=== PATIENT | female | born 1985 | race Hispanic/Latino ===

== ENCOUNTER 2024-09-27 10:07 | Outpatient (CLI) | payer BC, SELFPAY ==
--- NOTE | ~2024-09-27 | XR_ITS ---
XR elbow RT 2V 09/27/2024 10:16 Indication: Right elbow pain Procedure: 2 views right elbow Comparison: No prior studies for comparison. Findings: There is anatomic alignment. No fracture or traumatic malalignment. No significant joint ef fusion. No foreign bodies. Impression: 1: No significant bone or joint abnormality. Reviewed, dictated and finalized at location B. RHOUSE ATTENDANT Impression: 1: No significant bone or joint abnormality.
== END 2024-09-27 10:08 | disposition home or self-care (01) ==
LOC: MICIMG 10:09
PROVIDERS: PCP Internal Medicine; Visit Provider Internal Medicine
DX: M25.521 Pain in right elbow (principal)
CPT/HCPCS: 73070

== ENCOUNTER 2025-03-05 07:27 | Outpatient (CLI) | payer BC, SELFPAY ==
--- OUTSIDE RECORDS SUMMARY | 2025-03-05 07:31 | XMS_ITS | Clinical Summary ---
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 Gender Identity Not on file Sexual Orientation Not on file Plan of Treatment Health Maintenance Due Date Last Done Comments Cervical Cancer Screening Pap Smear (Age 30 to 64) Every 3 Years 1983 Annual Physical 1986 Hepatitis C 2001 Cervical Cancer Screening Pap with HPV Testing (Age 30 to 64) Every 5 Years 2013 Cervical Cancer Screening with HPV 2013 Hepatitis B Vaccines (2 of 3 - 19+ 3-dose series) 10/28/2022 09/30/2022 Mammogram Screening 2023 COVID-19 Vaccine ( season) 2024 08/01/2023, 10/18/2021, 04/01/2021, Additional history exists PHQ-2 (Physician [place]) 10/24/2024 DTaP, Tdap and Td Vaccines (3 - Td or Tdap) 09/30/2032 09/30/2022, 10/03/2017 HPV Vaccines Aged Out No longer eligi ble based on patient's age to complete this topic Meningococcal B Vaccine Aged Out No l onger eligible based on patient's age to complete this topic Meningococcal Vaccine Aged Out No zoë raciel eligible based on patient's age to complete this topic Pneumococcal Vaccine: Pediatrics (0 to 5 Years) and At-Risk Patients (6 to 49 Years) Aged Out No longer eligible based on patient's age to complete this topic RSV Immunizations Under 20 Months Aged Out No longer eligible based on patient's age to complete this topic
--- OUTSIDE RECORDS SUMMARY | 2025-03-05 07:31 | XMS_ITS | Referral Summary ---
Author Organization [facility] [address] [place] [id number] Care Team Providers Care Upper Cutter Name Role Phone Bertrand Roach MD Primary Care Provider + [phone] Allergies No known active allergies Medications losartan (COZAAR) 25 mg tablet Take 1 tablet (25 mg total) by mouth daily Active celecoxib (CeleBREX) 200 mg capsule Take 1 capsule (200 mg total) by mouth 2 (two) times a day Active RABEprazole DR (ACIPHEX) 20 mg EC tablet Take 1 tablet (20 mg total) by mouth daily Active sertraline (ZOLOFT) 100 mg tablet Take 1 tablet (100 mg total) by mouth daily Active blood-glucose sensor (Dexcom G7 Sensor) device Use for BG monitoring 3 each 4 Active Active Problems Problem Noted Date Diagnosed Date Hypoglycemia after GI (gastrointestinal) surgery 08/03/2024 Assessment & Plan (08/03/2024 3:42 PM CDT): Diet as cornerstone of treatment was discussed Importance of avoiding going more than 3- 4 hours without some caloric and low carb intake was explained Also the patient is advised on avoiding rapid absorption carbohydrates. Also the need to consume complex carbs , including protein and no saturated fats was also discussed Start CGM with the Dexcom mostly to see glucose trends May consider the use of acarbose and or metformin Hyperprolactinemia 08/03/2024 Assessment & Plan (08/03/2024 3:41 PM CDT): Update prolactin, TSH Recommendations to follow Social History Tobacco Use Types Packs/Day Years Used Date Smoking Tobacco: Never Smokeless Tobacco: Never Tobacco Cessation:Counseling Given: Not Answered AUDIT-C Answer Date Recorded Q1: How often do you have a drink containing alcohol? Never 08/03/2024 Q2: How many drinks containi ng alcohol do you have on a typical day when you are drinking? Patient does not drink Q3: How often do you have si x or more drinks on one occasion? 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 Gender Identity Not on file Sexual Orientation Not on file Last Filed Vital Signs Vital Sign Reading Time Taken Comments Blood Pressure 116/62 08/03/2024 12:02 PM CDT Pulse 83 08/03/2024 12:02 PM CDT Temperature - - Respiratory Rate 18 08/03/2024 12:02 PM CDT Oxygen Saturation - - Inhaled Oxygen Concentration - - Weight 82.6 kg (182 lb 3.2 oz) 08/03/2024 12:02 PM CDT Height 162.6 cm (5' 4 ) 08/03/2024 12:02 PM CDT Body Mass Index 31.27 08/03/2024 12:02 PM CDT Plan of Treatment Not on file [place] [address] [employer] ACC[employer] CHOICE Care Teams Upper Cutter Relationship Specialty Start Date End Date Bertrand Roach MD PCP - General Internal Medicine 01/16/24
--- OUTSIDE RECORDS SUMMARY | 2025-03-05 07:31 | XMS_ITS | Clinical Summary ---
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 Gender Identity Not on file Sexual Orientation Not on file Obstetrics History Last Filed Vital Signs Vital Sign Reading [...] 08/03/2024 12:02 PM CDT Plan of Treatment Health Maintenance Due Date Last Done Comments Breast Cancer Screening-Mammogram 1983 Cervical Cancer Screening 1983 Hepatitis C Screening 1983 Regular Well Visit/Exam 18-64 2001 Depression Screening 08/03/2025 08/03/2024, 08/03/20 24 DTaP/Tdap/Td Vaccine (3 - Td or Tdap) 09/30/2032 09/30/2022, 10/03/2017 Varicella Vaccines Completed 02/08/2023, 11/19/2022 Covid-19 Vaccine Completed 07/11/2024, 06/2023, 10/18/2021, Additional history exists Hepatitis B Screening Completed 07/11/2024, 022 Influenza Vaccine Completed 07/11/2024, , 09/06/2022, Additional history exists HPV Vaccines Aged Out No longer eligi ble based on patient's age to complete this topic Pneumococcal vaccine <65 Aged Out No longer eligible based on patient's age to complete [place] [id number] [facility] ACCESS CHOICE Care Teams Social Media Editor Relationship Specialty Start Date End Date Bertrand Roach MD PCP - General Internal Medicine 01/16/24
--- OUTSIDE RECORDS SUMMARY | 2025-03-05 07:32 | XMS_ITS | Data Portability ---
Author Organization [place] - [facility], DISP_HR Vascular Address [address] [place] [address] Assessment No assessment recorded. Plan of Treatment Reminders Order Date Submit Date Provider Last Modified By Organization Details Last Modified Time Details Appointments None record ed. Lab None record ed. Referral None record ed. Procedures None record ed. Surgeries None record ed. Imaging None record ed. Medication Orders None record ed. Patient TargetsNo targets recorded. Patient InstructionsNo instructions recorded. Reason for Referral None Reported. Results Created Date Observation Date Name Description Value Unit Range Abnormal Flag Note LastModifiedBy Organization Detail LastModifiedTime 08/18/2008/18/2021 GLUCO SE (POIN T OF CARE) glucose (point of care) 124 mg/dL 74-106 high Not Available [facility] (Lab) [address], [place], [address], 08/18/2021 21:17:59 08/18/20 21 08/18/2021 GLUCO SE (POIN T OF CARE) glucose (point of care) 142 mg/dL 74-106 high Not Available [facility] (Lab) [address], [place], [address], 08/18/2021 18:23:48 08/18/20 21 08/18/2021 GLUCO SE (POIN T OF CARE) glucose (point of care) 102 mg/dL 74-106 Not Available [facility] (Lab) [address], [place], [address], 08/18/2021 13:28:55 08/18/20 21 08/18/2021 GLUCO SE (POIN T OF CARE) glucose (point of care) 136 mg/dL 74-106 high Not Available [facility] (Lab) [address], [place], [address], 08/18/2021 11:25:35 08/18/20 21 08/18/2021 TYPE AND SCREE N patient ABO group and Rh O positi ve Not Available [facility] (Lab) [address], [place], [address], 08/18/2021 08:45:18 08/18/20 21 08/18/2021 TYPE AND SCREE N patient antibody screen negati ve Not Available [facility] (Lab) [address], [place], [address], 08/18/2021 08:45:18 08/18/20 21 08/18/2021 TYPE AND SCREE N bb armband id: [id number] Not Available [facility] (Lab) [address], [place], [address], 08/18/2021 08:45:18 08/19/20 21 08/19/2021 GLUCO SE (POIN T OF CARE) glucose (point of care) 98 mg/dL 74-106 Not Available [facility] (Lab) [address], [place], [address], 08/19/2021 17:46:01 08/19/20 21 08/19/2021 GLUCO SE (POIN T OF CARE) glucose (point of care) 109 mg/dL 74-106 high Not Available [facility] (Lab) [address], [place], [address], 08/19/2021 14:12:17 08/19/20 21 08/19/2021 GLUCO SE (POIN T OF CARE) glucose (point of care) 114 mg/dL 74-106 high Not Available [facility] (Lab) [address], [place], [address], 08/19/2021 10:18:57 08/19/20 21 08/19/2021 GLUCO SE (POIN T OF CARE) glucose (point of care) 116 mg/dL 74-106 high Not Available [facility] (Lab) [address], [place], [address], 08/19/2021 05:43:24 08/19/20 21 08/19/2021 GLUCO SE (POIN T OF CARE) glucose (point of care) 115 mg/dL 74-106 high Not Available [facility] (Lab) [address], [place], [address], 08/19/2021 01:04:52 09/08/20 22 2022 MEASL ES/RU BEOLA ANTIB ODIES ,IGG rubeola Ab, IgG <13.5 AU/mL immune >16.4 low Negat bette <13.5 Equiv ocal 13.5 - 16.4 Posit bette >16.4 Prese nce of antib odies to Rubeo la is presu mptiv e evide nce of immun ity excep t when acute infec tion is suspe cted. Perfo rmed at: [facility] [address] [facility], [place] [id number] [facility] Lab Direc tor: Jesus corcoran PhD, Phone : [phone] Not Available [facility] (Lab) [address] [place], [address], 2022 08:14:20 09/08/20 22 09/11/2022 QUANT IFERO N-TB GOLD PLUS quantiferon- TB gold plus negati ve negati ve No respo nse to M tuber culos is antig ens detec kenia. Infec tion with M tuber culos is is unlik janet, but high risk indiv idual s shoul d be consi dered for addit ional testi ng (ATS/ IDSA/ CDC Clini loc Pract ice Guide lines , 2017) . The refer ence range is an Antig en minus Nil resul t of <0.35 IU/mL . Chemi lumin escen ce immun oassa y metho dolog y Perfo rmed at: CB - [facility] n [address] [facility], [place] [id number] Lab Direc tor: Jesus corcoran PhD, Phone : [phone] Not Available [facility] (Lab) [address] [place], [address], 09/11/2022 09:13:35 09/08/20 22 09/11/2022 QUANT IFERO N-TB GOLD PLUS quantiferon incubation commen t Incub ation perfo rmed. Not Available [facility] (Lab) [address] [place], [address], 09/11/2022 09:13:35 09/08/20 22 09/11/2022 QUANT IFERO N-TB GOLD PLUS quantiferon criteria commen t . Quant iFERO N-TB Gold Plus is a quali tativ e indir ect test for M tuber culos is infec tion (incl uding disea se) and is inten ded for use in conju nctio n with risk asses sment , radio graph y, and other medic al and diagn ostic evalu ation s. The Quant iFERO N-TB Gold Plus resul t is deter mined by subtr actin g the Nil value from eithe r TB antig en (Ag) value . The Mitog en tube serve s as a contr ol for the test. Not Available [facility] (Lab) [address] [place], [address], 09/11/2022 09:13:35 09/08/20 22 09/11/2022 QUANT IFERO N-TB GOLD PLUS quantiferon TB1 Ag value 0.05 IU/mL Not Available [facility] (Lab) [address] [place], [address], 09/11/2022 09:13:35 09/08/20 22 09/11/2022 QUANT IFERO N-TB GOLD PLUS quantiferon TB2 Ag value 0.06 IU/mL Not Available [facility] (Lab) [address] [place], [address], 09/11/2022 09:13:35 09/08/20 22 09/11/2022 QUANT IFERO N-TB GOLD PLUS quantiferon nil value 0.04 IU/mL Not Available [facility] (Lab) [address] [place], [address], 09/11/2022 09:13:35 09/08/20 22 09/11/2022 QUANT IFERO N-TB GOLD PLUS quantiferon mitogen value >10.00 IU/mL [facility] [address] [facility], [place], [place] [id number] Lab Direc tor: Jesus corcoran PhD, Phone : [phone] Not Available [facility] (Lab) [address] [place], [address], 09/11/2022 09:13:35 09/08/20 22 2022 RUBEL LA IGG (IMMU NE STATU S) rub 8.06 IU/mL 0.0-9. 99 RUBEL LA IGG INTER PRETA TION: 0.0 - 9.99 Negat bette 10.00 - 14.99 Low Posit bette 15.00 or great er Posit bette Antib jeaneth level s > or = 10.0 WHO IU/mL are consi dered to be an indic ator of posit bette immun e statu s. Not Available [facility] (Lab) [address] [place], [address], 2022 20:43:26 09/08/20 22 2022 HEP BE AG hep BE Ag negati ve negati ve [facility]: [facility] [address] [facility], [place], [place] [id number] Lab Direc tor: Jesus corcoran PhD, Phone : [phone] Not Available [facility] (Lab) [address] [place], [address], 2022 12:11:28 09/08/20 22 2022 MUMPS ANTIB ODIES , IGG mumps abs, IgG 100.0 AU/mL immune >10.9 Negat bette <9.0 Equiv ocal 9.0 - 10.9 Posit bette >10.9 A posit bette resul t gener ally indic ates past expos ure to Mumps virus or previ ous vacci natio n. Perfo rmed at: - [address], [place] [address] Lab Direc tor: Jesus corcoran PhD, Phone : [phone] Not Available [facility] (Lab) [address] [place], [address], 2022 08:14:19 09/08/20 22 09/08/2022 URINA LYSIS COMPL ETE, IRIS pH 5.5 pH_un its 5.0-9. 0 Not Available [facility] (Lab) [address] [place], [address], 09/08/2022 19:55:58 09/08/20 22 09/08/2022 URINA LYSIS COMPL ETE, IRIS color yellow Not Available [facility] (Lab) [address] [place], [address], 09/08/2022 19:55:58 09/08/20 22 09/08/2022 URINA LYSIS COMPL ETE, IRIS appear turbid abnormal Not Available [facility] (Lab) [address] [place], [address], 09/08/2022 19:55:58 09/08/20 22 09/08/2022 URINA LYSIS COMPL ETE, IRIS specific gravity 1.021 1.001- 1.030 Not Available [facility] (Lab) [address] [place], [address], 09/08/2022 19:55:58 09/08/20 22 09/08/2022 URINA LYSIS COMPL ETE, IRIS leukocytes negati ve evangelista/u L negati ve- Not Available [facility] (Lab) [address] [place], [address], 09/08/2022 19:55:58 09/08/20 22 09/08/2022 URINA LYSIS COMPL ETE, IRIS nitrite negati ve negati ve- Not Available [facility] (Lab) [address] [place], [address], 09/08/2022 19:55:58 09/08/20 22 09/08/2022 URINA LYSIS COMPL ETE, IRIS protein 20 mg/dL negati ve- abnormal Not Available [facility] (Lab) [address] [place], [address], 09/08/2022 19:55:58 09/08/20 22 09/08/2022 URINA LYSIS COMPL ETE, IRIS glucose normal mg/dL normal - Not Available [facility] (Lab) [address] [place], [address], 09/08/2022 19:55:58 09/08/20 22 09/08/2022 URINA LYSIS COMPL ETE, IRIS ketones 60 mg/dL negati ve- abnormal Not Available [facility] (Lab) [address] [place], [address], 09/08/2022 19:55:58 09/08/20 22 09/08/2022 URINA LYSIS COMPL ETE, IRIS urobilinogen normal mg/dL normal - Not Available [facility] (Lab) [address] [place], [address], 09/08/2022 19:55:58 09/08/20 22 09/08/2022 URINA LYSIS COMPL ETE, IRIS bilirubin negati ve mg/dL negati ve- Not Available [facility] (Lab) [address] [place], [address], 09/08/2022 19:55:58 09/08/20 22 09/08/2022 URINA LYSIS COMPL ETE, IRIS blood negati ve mg/dL negati ve- Not Available [facility] (Lab) [address] [place], [address], 09/08/2022 19:55:58 09/08/20 22 09/08/2022 URINA LYSIS COMPL ETE, IRIS white blood cells 0-8 /i??h pfi?? 0-8 Not Available [facility] (Lab) [address] [place], [address], 09/08/2022 19:55:58 09/08/20 22 09/08/2022 URINA LYSIS COMPL ETE, IRIS red blood cells 0-4 /i??h pfi?? 0-4 Not Available [facility] (Lab) [address] [place], [address], 09/08/2022 19:55:58 09/08/20 22 09/08/2022 URINA LYSIS COMPL ETE, IRIS bacteria occasi onal abnormal Not Available [facility] (Lab) [address] [place], [address], 09/08/2022 19:55:58 09/08/20 22 09/08/2022 URINA LYSIS COMPL ETE, IRIS mucous many /i??l pfi?? abnormal Not Available [facility] (Lab) [address] [place], [address], 09/08/2022 19:55:58 09/08/20 22 09/08/2022 URINA LYSIS COMPL ETE, IRIS squamous epithelial packed field /i??l pfi?? abnormal Not Available [facility] (Lab) [address] [place], [address], 09/08/2022 19:55:58 09/08/20 22 09/08/2022 URINA LYSIS COMPL ETE, IRIS renal epithelial occasi onal /i??l pfi?? abnormal Not Available [facility] (Lab) [address] [place], [address], 09/08/2022 19:55:58 09/08/20 22 09/08/2022 URINA LYSIS COMPL ETE, IRIS hyaline cast occasi onal /i??l pfi?? none seen- abnormal Not Available [facility] (Lab) [address] [place], [address], 09/08/2022 19:55:58 09/08/20 22 09/08/2022 URINA LYSIS COMPL ETE, IRIS calcium oxalate crystal occasi onal /i??h pfi?? none seen- abnormal Not Available [facility] (Lab) [address] [place], [address], 09/08/2022 19:55:58 09/08/20 22 09/08/2022 LIPID PANEL LDL cholesterol, calculated 96 mg/dL 0-130 NIH KASHMIR NSUS REPOR T RECOM MENDA TIONS FOR LDL: ADULT CHILD LOW RISK <130 <110 (OPTI MAL LDL) <100 ----- BORDE RLINE : 130-1 59 ----- HIGH RISK: >160 >130 A TRIGL YCERI DE RESUL T >400 INVAL IDATE S THE CALCU LATIO N FOR LDL FRACT IONAT ION - THE LDL RESUL T WILL NOT BE REPOR KENIA. Not Available [facility] (Lab) [address] [place], [address], 09/08/2022 19:40:10 09/08/20 22 09/08/2022 LIPID PANEL cholesterol 176 mg/dL 140-19 9 NIH KASHMIR NSUS RECOM MENDA TION FOR ESTHER STERO L: ADULT CHILD LOW RISK: <200 <170 BORDE RLINE : <200- 239 ----- HIGH RISK: >240 >200 Not Available [facility] (Lab) [address] [place], [address], 09/08/2022 19:40:10 09/08/20 22 09/08/2022 LIPID PANEL triglyceride s 113 mg/dL 0-150 NIH KASHMIR NSUS REPOR T RECOM MENDA TION FOR TRIGL YCERI EDGAR: ADULT CHILD LOW RISK: <150 ----- BODER LINE: 150-1 99 ----- HIGH RISK: >200 ----- Not Available [facility] (Lab) [address] [place], [address], 09/08/2022 19:40:10 09/08/20 22 09/08/2022 LIPID PANEL HDL cholesterol 57 mg/dL 40- Not Available [facility] (Lab) [address] [place], [address], 09/08/2022 19:40:10 09/23/20 22 09/25/2022 VARIC EDGAR- ZOSTE R V AB, IGG varicella zoster IgG <135 index immune >165 low Negat bette <135 Equiv ocal 135 - 165 Posit bette >165 A posit bette resul t gener ally indic ates expos ure to the patho gen or admin istra tion of speci fic immun oglob ulins , but it is not indic ation of activ e infec tion or stage of disea se. Perfo rmed at: CB - [facility] [address] [place] [address] Lab Direc tor: Jesus corcoran PhD, Phone : [phone] Not Available [facility] (Lab) [address] [place], [address], 09/25/2022 08:13:19 09/23/20 22 09/23/2022 HEP B SURF ANTIG EN W/CON FIRM hepatitis B surface antigen non-re active non-re active All speci mens react bette for Hepat itis B Surfa ce Antig en will refle x to refer ral lab confi rmato ry testi ng. Not Available [facility] (Lab) [address] [place], [address], 09/23/2022 19:48:52 09/23/20 22 09/23/2022 HEP B SURF ANTIG EN W/CON FIRM S/C 0.07 0.00-0 .99 Not Available [facility] (Lab) [address] [place], [address], 09/23/2022 19:48:52 Result Notes None recorded. 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 2021 Not Available [facility] 3 03:15:51 Low back pain 410176082 Completed Not Available [facility] 3 03:15:51 Adnexal tenderness 808253954 Completed Not Available [facility] 3 03:15:51 Vitamin D deficiency 86697161 Active 2021 Not Available [facility] 3 03:15:51 Migraine 52180246 Active 2021 Not Available [facility] 3 03:15:52 Anxiety 54225782 Active Not Available [facility] 3 03:15:52 Upper respirator y infection 08182853 Active 2021 Not Available [facility] 3 03:15:52 History of bariatric surgical procedure 397315563 Active 2021 Not Available [facility] 3 03:15:52 Problem Notes None recorded. Procedures Surgical History Date Name Laterality Status Provider Name and Address Organization Details Recorded Time 08/18/20 21 LAPARASCOPIC EFRAIN-EN-Y GASTRIC BYPASS (SURG) completed Not Available [facility] 10/31/2022 03:14:52 03/18/20 11 SCALE ATTENDANT Surgery completed Not Available [facility] 10/31/19 23 03:14:36 SCALE ATTENDANT Surgery completed Not Available [facility] 10/31/2022 03:14:36 completed Not Available [facility] 0 10/31/2022 03:14:36 Colonoscopy completed Not Available [facility] 10/31/2022 03:14:36 other completed Not Available [facility] 05/2023 03:14:36 other completed Not Available [facility] 05/2023 03:14:36 other completed Not Available [facility] 05/2023 03:14:36 SCALE ATTENDANT Procedure completed Not Available Replaced by [facility] 10/31/2022 03:14:36 SCALE ATTENDANT Surgery completed Not Available [facility] 10/31/2022 03:14:36 SCALE ATTENDANT Surgery completed Not Available [facility] 10/31/2022 03:14:36 completed Not Available [place] [address] 10/31/2022 03:14:36 Imaging Results None recorded. Procedure Notes None recorded. Medical Equipment None Reported. Medications Name Sig Start Date Stop Date Status Note LastModified by Organization Details LastModified Time cyclobenzap rine 10 mg tablet TK 1 T PO BID FOR 14 DAYS PRN 02/23 completed Not Available Not Available Not Available bupropion HCl SR 150 mg tablet,12 hr sustained-r elease Take 2 tablets q am and 1 tablet q m 12/27 completed Not Available Not Available Not Available prednisone 10 mg tablet 4 x 3 days, 3 x 3 days; 2 x 3 days, 1 x 3 days active Not Available Not Available No t Available rabeprazole 20 mg tablet,oscar yed release TAKE 1 TABLET BY MOUTH DAILY active Not Available Not Available No t Available atorvastati n 10 mg tablet Take 1 tablet every day by oral route. 10/19 completed Not Available Not Available Not Available azithromyci n 250 mg tablet TAKE 2 TABLETS (500 MG) BY ORAL ROUTE ONCE DAILY FOR 1 DAY THEN 1 TABLET (250 MG) BY ORAL ROUTE ONCE DAILY FOR 4 DAYS 03/27 completed Not Available Not Available Not Available ibuprofen 800 mg tablet 12/27 completed Not Available Not Available Not Available fluconazole 150 mg tablet 09/17 completed Not Available Not Available Not Available hydrocodone 5 mg-acetamin ophen 325 mg tablet Take 1 tablet every 6 hours by oral route. 01/07 completed Not Available Not Available Not Available meloxicam 15 mg tablet TK 1 T PO D 09/15 completed Not Available Not Available Not Available ondansetron HCl 4 mg tablet 09/17 completed Not Available Not Available Not Available prednisone 20 mg tablet Take 2 tablets every day by oral route for 5 days. active Not Available Not Available No t Available sertraline 100 mg tablet TAKE 1 TABLET BY MOUTH DAILY active Not Available Not Available No t Available metronidazo le 500 mg tablet TK 1 T PO TID FOR 10 DAYS active Not Available Not Available No t Available amlodipine 5 mg tablet TAKE ONE-HALF TABLET BY MOUTH DAILY 11/24 completed Not Available Not Available Not Available Macrobid 100 mg capsule Take 1 capsule twice a day by oral route. 11/24 completed Not Available Not Available Not Available meloxicam 7.5 mg tablet 03/27 completed Not Available Not Available Not Available hydrocortis one 2.5 % topical cream with perineal applicator APPLY RECTALLY TO THE AFFECTED AREA DAILY NEEDED FOR HEMORRHOI DS 04/14 completed Not Available Not Available Not Available ranitidine 75 mg tablet Take 1 tablet twice a day by oral route. 07/05 completed Not Available Not Available Not Available hydrocodone 7.5 mg-acetamin ophen 325 mg tablet Take 1 tablet 3 times a day by oral route. 02/23 completed Not Available Not Available Not Available oseltamivir 75 mg capsule TK 1 C PO BID FOR 5 DAYS 09/30 completed Not Available Not Available Not Available Cipro 500 mg tablet Take 1 tablet twice a day by oral route. active Not Available Not Available No t Available etodolac 400 mg tablet Take 1 tablet twice a day by oral route for 30 days. active Not Available Not Available No t Available montelukast 10 mg tablet TK 1 T PO QD 07/05 completed Not Available Not Available Not Available hydrocodone 5 mg-acetamin ophen 500 mg tablet one tablet po bid prn 03/08 completed Not Available Not Available Not Available gabapentin 100 mg capsule Take 1 capsule 3 times a day by oral route. active Not Available Not Available No t Available ergocalcife rol (vitamin D2) 1,250 mcg (50,000 unit) capsule Take 1 capsule every week by oral route. 08/15 completed Not Available Not Available Not Available cefuroxime axetil 500 mg tablet Take 1 tablet twice a day by oral route. active Not Available Not Available No t Available methylpredn isolone 4 mg tablets in a dose pack take decreasin g doses as directed 04/18 completed Not Available Not Available Not Available ondansetron 4 mg disintegrat ing tablet DISSOLVE 1 T PO Q 6 H active Not Available Not Available No t Available cefdinir 300 mg capsule Take 1 capsule every 12 hours by oral route for 7 days. 09/06 completed Not Available Not Available Not Available sertraline 50 mg tablet 09/17 completed Not Available Not Available Not Available Lovenox 40 mg/0.4 mL subcutaneou s syringe Inject 0.4 mL every day by subcutane ous route as directed for 10 days. 09/09 completed Not Available Not Available Not Available naproxen 500 mg tablet 09/17 completed Not Available Not Available Not Available amoxicillin 875 mg-potassiu m clavulanate 125 mg tablet TK 1 T PO BID FOR 7 DAYS 09/30 completed Not Available Not Available Not Available tizanidine 2 mg capsule 08/15 completed Not Available Not Available Not Available Boostrix Tdap 2.5 Lf unit-8 mcg-5 Lf/0.5 mL intramuscul ar syringe ADM 0.5ML IM UTD 10/19 completed Not Available Not Available Not Available Flexeril 09/06 completed Not Available Not Available Not Available AcipHex 02/23 completed Not Available Not Available Not Available multivitami n 2020 active Not Available Not Available Not Avai lable Calcium Citrate + D 09/06 completed Not Available Not Available Not Available ProAir HFA 90 mcg/actuati on aerosol inhaler Inhale 2 puffs every 4 hours by inhalatio n route. active Not Available Not Available No t Available PEG-3350 with flavor packs 420 gram oral solution 09/17 completed Not Available Not Available Not Available GaviLyte-G 236 gram-22.74 gram-6.74 gram-5.86 gram oral solution 07/05 completed Not Available Not Available Not Available Linzess 145 mcg capsule TAKE 1 CAPSULE BY MOUTH DAILY 04/14 completed Not Available Not Available Not Available Vitamin B12 2020 active Not Available Not Available Not Avai lable Narcan 4 mg/actuatio n nasal spray 02/23 completed Not Available Not Available Not Available Linzess 72 mcg capsule TAKE 1 CAPSULE BY MOUTH DAILY 11/24 completed Not Available Not Available Not Available Flucelvax Quad 60 mcg (15 mcg x 4)/0.5 mL IM suspension ADM 0.5ML IM UTD 07/05 completed Not Available Not Available Not Available Afluria Quad 60 mcg (15 mcg x 4)/0.5 mL intramuscul ar susp. ADM 0.5ML IM UTD 09/30 completed Not Available Not Available Not Available Vitals Date Recorded Body mass index (BMI) Body height Heart rate Body temperature Body weight Systolic blood pressure Diastolic blood pressure Provider Name and Address Organization Details Last Updated DateTime 1 38.4 kg/m2 162.56 cm 90 /min 97.4 [degF] 380001. 69 g 110 mm[Hg] 60 mm[Hg] Not Available [facility] 3 03:15:15 Date Recorded Body mass index (BMI) Body height Oxygen saturation Oxygen saturation in Arterial blood by Pulse oximetry Heart rate Body temperature Body weight Systolic blood pressure Diastolic blood pressure Provider Name and Address Organization Details Last Updated DateTime 2 34.2 kg/m2 162.56 cm 99 % 99 % 87 /min 98.7 [degF] 76217.8 8 g 124 mm[Hg] 78 mm[Hg] Not Available [facility] 3 03:15:15 Date Recorded Body mass index (BMI) Body height Heart rate Body weight Systolic blood pressure Diastolic blood pressure Provider Name and Address Organization Details Last Updated DateTime 2 32.3 kg/m2 162.56 cm 92 /min 66513.3 7 g 110 mm[Hg] 78 mm[Hg] Not Available [facility] 3 03:15:15 Date Recorded Body mass index (BMI) Body height Body weight Provider Name and Address Organization Details Last Updated DateTime 02/23/2022 30.9 kg/m2 162.56 cm 64813.63 g Not Available [facility] 10/31/2022 03:15:19 Date Recorded Body mass index (BMI) Body height Heart rate Body temperature Body weight Systolic blood pressure Diastolic blood pressure Provider Name and Address Organization Details Last Updated DateTime 2 28.5 kg/m2 162.56 cm 88 /min 99.1 [degF] 87889.3 3 g 128 mm[Hg] 86 mm[Hg] Not Available [facility] 3 03:15:15 Social History Question Answer Notes LastModified by Organization Details LastModified Time Tobacco Smoking Status Former Smoker restarted 04/2018; quit 08/2018; restarted 08/2019; quit 09/2019 Not Available [facility] 10/31/2022 03:14:02 Do You Have An Advance Directive? No [id number] Information not available 10/31/2022 Do You Wear A Helmet When Biking? No [id number] Information not available 10/31/2022 What Is Your Level Of Caffeine Consumption? Occasional [id number] Information not available 10/31/2022 How Much Tobacco Do You Chew? None [id number] Information not available 10/31/2022 In The 14 Days Before Symptom Onset, Have You Had Close Contact With A Laboratory-conf irmed COVID-19 While That Case Was Ill? No [id number].106 [id number] Information not available 10/31/2022 In The 14 Days Before Symptom Onset, Have You Had Close Contact With A Person Who Is Under Investigation For COVID-19 While That Person Was Ill? No MIGRATION.106 [id number] Information not available 10/31/2022 What Type Of Diet Are You Following? REGULAR MIGRATION.106 Information not available 10/31/2022 Which Illicit Or Recreational Drugs Have You Used? None [email or web address].106 [id number] Information not available 10/31/2022 What Is The Highest Grade Or Level Of School You Have Completed Or The Highest Degree You Have Received? [id number] MIGRATION.106 Information not available 10/31/2022 Have There Been Any Changes To Your Family Or Social Situation? No MIGRATION.106 [id number] Information not available 10/31/2022 When Did You Quit Smoking? 1-5yearssincelastc igarette MIGRATION.106 Information not available 10/31/2022 Are There Any Guns Present In Your Home? No [id number] Information not available 10/31/2022 Do You Use Insect Repellent Routinely? Yes [id number] Information not available 10/31/2022 Where Do You Live? SingleLevelHouse MIGRATION.106 Information not available 10/31/2022 Are You In An Abusive/frighte edson Relationship? No MIGRATION.106 [id number] Information not available 10/31/2022 Do You Feel Safe At Home Yes MIGRATION.106 [id number] Information not available 10/31/2022 Do You Have A Medical Power Of Ecg Technician? No MIGRATION.106 [id number] Information not available 10/31/2022 What Was The Date Of Your Most Recent Tobacco Screening? 09/06/2022 [email or web address].106 Information not available 10/31/2022 [id number]|2025-03-05 07:32:00|2025-03-04 14:50:00|XMS_ITS|PABLOG AMANDA|External Medical Summaries|[id number]|" Data Portability Created on: March 04, 2025 Deborah Talbot .[id number] : 1985 Sex: Female Author Organization [place] [facility] [employer], Main Office Address [address] [place] [address] Assessment Encounter Date Assessment Date Assessment LastModified by Organization Details LastModified Time 05/31/2023 05/31/2023 Continue current therapy follow-up 4 months [email or web address] Not available 06/12/2023 21:50:32 Plan of Treatment Reminders Order Date Submit Date Provider Last Modified By Organization Details Last Modified Time Details Appointments None recorded. Lab PPD (purified protein derivative) , skin test 2022 08 023 [email or web address] [facility] [address] Shmuel Salguero, [place], [address], 3 21:50:47 Referral None recorded. Procedures None recorded. Surgeries None recorded. Imaging None recorded. Medication Orders Tubersol 5 tub. unit/0.1 mL intradermal injection solution 2022 023 [email or web address] Not available 16:02:20 Patient TargetsNo targets recorded. Patient InstructionsNo instructions recorded. Reason for Referral None Reported. Results Created Date Observation Date Name Description Value Unit Range Abnormal Flag Note LastModifiedBy Organization Detail LastModifiedTime 09/08/20 22 2022 MEASL ES/RU BEOLA ANTIB ODIES ,IGG rubeola Ab, IgG <13.5 AU/mL immune >16.4 low Negat bette <13.5 Equiv ocal 13.5 - 16.4 Posit bette >16.4 Prese nce of antib odies to Rubeo la is presu mptiv e evide nce of immun ity excep t when acute infec tion is suspe cted. Perfo rmed at: [facility] [address] [id number] Lab Direc tor: Jesus corcoran PhD, Phone : [phone] Not Available [facility] (Lab) [address] [place], [address], 2022 08:14:20 09/08/20 22 09/11/2022 QUANT IFERO N-TB GOLD PLUS quantiferon incubation commen t Incub ation perfo rmed. Not Available [facility] (Lab) [address] [place], [address], 09/11/2022 09:13:35 09/08/20 22 09/11/2022 QUANT IFERO N-TB GOLD PLUS quantiferon criteria commen t . Quant iFERO N-TB Gold Plus is a quali tativ e indir ect test for M tuber culos is infec tion (incl uding disea se) and is inten ded for use in conju nctio n with risk asses sment , radio graph y, and other medic al and diagn ostic evalu ation s. The Quant iFERO N-TB Gold Plus resul t is deter mined by subtr actin g the Nil value from eithe r TB antig en (Ag) value . The Mitog en tube serve s as a contr ol for the test. Not Available [facility] (Lab) [address] [place], [address], 09/11/2022 09:13:35 09/08/20 22 09/11/2022 QUANT IFERO N-TB GOLD PLUS quantiferon TB1 Ag value 0.05 IU/mL Not Available [facility] (Lab) [address] [place], [address], 09/11/2022 09:13:35 09/08/20 22 09/11/2022 QUANT IFERO N-TB GOLD PLUS quantiferon TB2 Ag value 0.06 IU/mL Not Available [facility] (Lab) [address] [place], [address], 09/11/2022 09:13:35 09/08/20 22 09/11/2022 QUANT IFERO N-TB GOLD PLUS quantiferon nil value 0.04 IU/mL Not Available [facility] (Lab) [address] [place], [address], 09/11/2022 09:13:35 09/08/20 22 09/11/2022 QUANT IFERO N-TB GOLD PLUS quantiferon mitogen value >10.00 IU/mL Perfo rmed at: - [facility] n [address] [facility], [place] [address] Lab Direc tor: Jesus corcoran PhD, Phone : [phone] Not Available [facility] (Lab) [address] [place], [address], 09/11/2022 09:13:35 09/08/20 22 09/11/2022 QUANT IFERO N-TB GOLD PLUS quantiferon- TB gold plus negati ve negati ve No respo nse to Blane sheridan is antig ens detec kenia. Infec tion with Blane sheridan is is unlik janet, but high risk indiv idual s shoul d be consi dered for addit ional testi ng (ATS/ IDSA/ CDC Clini loc Pract ice Guide lines , 2017) . The refer ence range is an Antig en minus Nil resul t of <0.35 IU/mL . Chemi lumin escen ce immun oassa y metho dolog y Perfo rmed at: [facility] [address] [place] [address] Lab Direc tor: Jesus corcoran PhD, Phone : [phone] Not Available [facility] (Lab) [address] [place], [address], 09/11/2022 09:13:35 09/08/20 22 2022 RUBEL LA IGG (IMMU NE STATU S) rub 8.06 IU/mL 0.0-9. 99 RUBEL LA IGG INTER PRETA TION: 0.0 - 9.99 Negat bette 10.00 - 14.99 Low Posit bette 15.00 or great er Posit bette Antib jeaneth level s > or = 10.0 WHO IU/mL are consi dered to be an indic ator of posit bette immun e statu s. Not Available [facility] (Lab) [address] [place], [address], 2022 20:43:26 09/08/20 22 2022 HEP BE AG hep BE Ag negati ve negati ve Perfo rmed at: [facility] [address] [place] [address] Lab Direc tor: Jesus corcoran PhD, Phone : [phone] Not Available [facility] (Lab) [address] [place], [address], 2022 12:11:28 09/08/20 22 2022 MUMPS ANTIB ODIES , IGG mumps abs, IgG 100.0 AU/mL immune >10.9 Negat bette <9.0 Equiv ocal 9.0 - 10.9 Posit bette >10.9 A posit bette resul t gener ally indic ates past expos ure to Mumps virus or previ ous vacci natio n. Perfo rmed at: - [address], [place] [address] Lab Direc tor: Jesus corcoran PhD, Phone : [phone] Not Available [facility] (Lab) [address] [place], [address], 2022 08:14:19 09/08/20 22 09/08/2022 URINA LYSIS COMPL ETE, IRIS color yellow Not Available [facility] (Lab) [address] [place], [address], 09/08/2022 19:55:58 09/08/20 22 09/08/2022 URINA LYSIS COMPL ETE, IRIS appear turbid abnormal Not Available [facility] (Lab) [address] [place], [address], 09/08/2022 19:55:58 09/08/20 22 09/08/2022 URINA LYSIS COMPL ETE, IRIS specific gravity 1.021 1.001- 1.030 Not Available [facility] (Lab) [address] [place], [address], 09/08/2022 19:55:58 09/08/20 22 09/08/2022 URINA LYSIS COMPL ETE, IRIS pH 5.5 pH_un its 5.0-9. 0 Not Available [facility] (Lab) [address] [place], [address], 09/08/2022 19:55:58 09/08/20 22 09/08/2022 URINA LYSIS COMPL ETE, IRIS leukocytes negati ve evangelista/u L negati ve- Not Available [facility] (Lab) [address] [place], [address], 09/08/2022 19:55:58 09/08/20 22 09/08/2022 URINA LYSIS COMPL ETE, IRIS nitrite negati ve negati ve- Not Available [facility] (Lab) [address] [place], [address], 09/08/2022 19:55:58 09/08/20 22 09/08/2022 URINA LYSIS COMPL ETE, IRIS protein 20 mg/dL negati ve- abnormal Not Available [facility] (Lab) [address] [place], [address], 09/08/2022 19:55:58 09/08/20 22 09/08/2022 URINA LYSIS COMPL ETE, IRIS glucose normal mg/dL normal - Not Available [facility] (Lab) [address] [place], [address], 09/08/2022 19:55:58 09/08/20 22 09/08/2022 URINA LYSIS COMPL ETE, IRIS ketones 60 mg/dL negati ve- abnormal Not Available [facility] (Lab) [address] [place], [address], 09/08/2022 19:55:58 09/08/20 22 09/08/2022 URINA LYSIS COMPL ETE, IRIS urobilinogen normal mg/dL normal - Not Available [facility] (Lab) [address] [place], [address], 09/08/2022 19:55:58 09/08/20 22 09/08/2022 URINA LYSIS COMPL ETE, IRIS bilirubin negati ve mg/dL negati ve- Not Available [facility] (Lab) [address] [place], [address], 09/08/2022 19:55:58 09/08/20 22 09/08/2022 URINA LYSIS COMPL ETE, IRIS blood negati ve mg/dL negati ve- Not Available [facility] (Lab) [address] [place], [address], 09/08/2022 19:55:58 09/08/20 22 09/08/2022 URINA LYSIS COMPL ETE, IRIS white blood cells 0-8 /i??h pfi?? 0-8 Not Available [facility] (Lab) [address] [place], [address], 09/08/2022 19:55:58 09/08/20 22 09/08/2022 URINA LYSIS COMPL ETE, IRIS red blood cells 0-4 /i??h pfi?? 0-4 Not Available [facility] (Lab) [address] [place], [address], 09/08/2022 19:55:58 09/08/20 22 09/08/2022 URINA LYSIS COMPL ETE, IRIS bacteria occasi onal abnormal Not Available [facility] (Lab) [address] [place], [address], 09/08/2022 19:55:58 09/08/20 22 09/08/2022 URINA LYSIS COMPL ETE, IRIS mucous many /i??l pfi?? abnormal Not Available [facility] (Lab) [address] [place], [address], 09/08/2022 19:55:58 09/08/20 22 09/08/2022 URINA LYSIS COMPL ETE, IRIS squamous epithelial packed field /i??l pfi?? abnormal Not Available [facility] (Lab) [address] [place], [address], 09/08/2022 19:55:58 09/08/20 22 09/08/2022 URINA LYSIS COMPL ETE, IRIS renal epithelial occasi onal /i??l pfi?? abnormal Not Available [facility] (Lab) [address] [place], [address], 09/08/2022 19:55:58 09/08/20 22 09/08/2022 URINA LYSIS COMPL ETE, IRIS hyaline cast occasi onal /i??l pfi?? none seen- abnormal Not Available [facility] (Lab) [address] [place], [address], 09/08/2022 19:55:58 09/08/20 22 09/08/2022 URINA LYSIS COMPL ETE, IRIS calcium oxalate crystal occasi onal /i??h pfi?? none seen- abnormal Not Available [facility] (Lab) [address] [place], [address], 09/08/2022 19:55:58 09/08/20 22 09/08/2022 LIPID PANEL cholesterol 176 mg/dL 140-19 9 NIH KASHMIR NSUS RECOM MENDA TION FOR ESTHER STERO L: ADULT CHILD LOW RISK: <200 <170 BORDE RLINE : <200- 239 ----- HIGH RISK: >240 >200 Not Available [facility] (Lab) [address] [place], [address], 09/08/2022 19:40:10 09/08/20 22 09/08/2022 LIPID PANEL triglyceride s 113 mg/dL 0-150 NIH KASHMIR NSUS REPOR T RECOM MENDA TION FOR TRIGL YCERI EDGAR: ADULT CHILD LOW RISK: <150 ----- BODER LINE: 150-1 99 ----- HIGH RISK: >200 ----- Not Available [facility] (Lab) [address] [place], [address], 09/08/2022 19:40:10 09/08/20 22 09/08/2022 LIPID PANEL HDL cholesterol 57 mg/dL 40- Not Available [facility] (Lab) [address] [place], [address], 09/08/2022 19:40:10 09/08/20 22 09/08/2022 LIPID PANEL LDL cholesterol, calculated 96 mg/dL 0-130 NIH KASHMIR NSUS REPOR T RECOM MENDA TIONS FOR LDL: ADULT CHILD LOW RISK <130 <110 (OPTI MAL LDL) <100 ----- BORDE RLINE : 130-1 59 ----- HIGH RISK: >160 >130 A TRIGL YCERI DE RESUL T >400 INVAL IDATE S THE CALCU LATIO N FOR LDL FRACT IONAT ION - THE LDL RESUL T WILL NOT BE REPOR KENIA. Not Available [facility] (Lab) [address] [place], [address], 09/08/2022 19:40:10 06/02/20 23 06/02/2023 PPD (trina fied prote in deriv ative ), skin test TB negati ve Not Available [facility] [address] Shmuel Salguero, [place], [address], 05/31/2023 11:44:23 01/04/20 24 01/04/2024 CBC/C OMPLE TE BLD COUNT W/DIF F white blood cells 6.1 x10'3 /uL 4.2-10 .8 Not Available [facility] (Lab) [address] [place], [address], 01/04/2024 13:43:42 01/04/20 24 01/04/2024 CBC/C OMPLE TE BLD COUNT W/DIF F red blood cells 4.47 x10'6 /uL 3.80-5 .20 Not Available [facility] (Lab) [address] [place], [address], 01/04/2024 13:43:42 01/04/20 24 01/04/2024 CBC/C OMPLE TE BLD COUNT W/DIF F hemoglobin 12.1 g/dL 12.0-1 5.6 Not Available [facility] (Lab) [address] [place], [address], 01/04/2024 13:43:42 01/04/20 24 01/04/2024 CBC/C OMPLE TE BLD COUNT W/DIF F hematocrit 38.9 % 35.7-4 5.7 Not Available [facility] (Lab) [address] [place], [address], 01/04/2024 13:43:42 01/04/20 24 01/04/2024 CBC/C OMPLE TE BLD COUNT W/DIF F mean red cell volume 87.0 fL 82.0-9 9.0 Not Available [facility] (Lab) [address] [place], [address], 01/04/2024 13:43:42 01/04/20 24 01/04/2024 CBC/C OMPLE TE BLD COUNT W/DIF F mean red cell hemoglobin 27.1 pg 27.0-3 3.0 Not Available [facility] (Lab) [address] [place], [address], 01/04/2024 13:43:42 01/04/20 24 01/04/2024 CBC/C OMPLE TE BLD COUNT W/DIF F mean RBC HGB concentratio n 31.1 g/dL 31.0-3 6.0 Not Available [facility] (Lab) [address] [place], [address], 01/04/2024 13:43:42 01/04/20 24 01/04/2024 CBC/C OMPLE TE BLD COUNT W/DIF F red cell distribution width 14.5 % 11.8-1 5.5 Not Available [facility] (Lab) [address] [place], [address], 01/04/2024 13:43:42 01/04/20 24 01/04/2024 CBC/C OMPLE TE BLD COUNT W/DIF F platelets 280 x10'3 /uL 150-40 0 Not Available [facility] (Lab) [address] [place], [address], 01/04/2024 13:43:42 01/04/20 24 01/04/2024 CBC/C OMPLE TE BLD COUNT W/DIF F mean platelet volume 10.0 fL 9.0-12 .4 Not Available [facility] (Lab) [address] [place], [address], 01/04/2024 13:43:42 01/04/20 24 01/04/2024 CBC/C OMPLE TE BLD COUNT W/DIF F neutrophils 60.3 % 39.0-7 2.0 Not Available [facility] (Lab) [address] [place], [address], 01/04/2024 13:43:42 01/04/20 24 01/04/2024 CBC/C OMPLE TE BLD COUNT W/DIF F lymphocytes 27.0 % 16.0-4 7.0 Not Available [facility] (Lab) [address] [place], [address], 01/04/2024 13:43:42 01/04/20 24 01/04/2024 CBC/C OMPLE TE BLD COUNT W/DIF F monocytes 8.2 % 5.0-12 .0 Not Available [facility] (Lab) [address] [place], [address], 01/04/2024 13:43:42 01/04/20 24 01/04/2024 CBC/C OMPLE TE BLD COUNT W/DIF F eosinophils 3.3 % 1.0-7. 0 Not Available [facility] (Lab) [address] [place], [address], 01/04/2024 13:43:42 01/04/20 24 01/04/2024 CBC/C OMPLE TE BLD COUNT W/DIF F basophils 1.0 % 0.0-2. 0 Not Available [facility] (Lab) [address] [place], [address], 01/04/2024 13:43:42 01/04/20 24 01/04/2024 CBC/C OMPLE TE BLD COUNT W/DIF F immature granulocytes 0.2 % 0.00-0 .50 Not Available [facility] (Lab) [address] [place], [address], 01/04/2024 13:43:42 01/04/20 24 01/04/2024 CBC/C OMPLE TE BLD COUNT W/DIF F neutrophils, absolute count 3.70 x10'3 /uL 1.5-8. 0 Not Available [facility] (Lab) [address] [place], [address], 01/04/2024 13:43:42 01/04/20 24 01/04/2024 CBC/C OMPLE TE BLD COUNT W/DIF F lymphocytes, absolute count 1.65 x10'3 /uL 1.07-3 .43 Not Available [facility] (Lab) [address] [place], [address], 01/04/2024 13:43:42 01/04/20 24 01/04/2024 CBC/C OMPLE TE BLD COUNT W/DIF F monocytes, absolute count 0.50 x10'3 /uL 0.29-0 .99 Not Available [facility] (Lab) [address] [place], [address], 01/04/2024 13:43:42 01/04/20 24 01/04/2024 CBC/C OMPLE TE BLD COUNT W/DIF F eosinophils, absolute count 0.20 x10'3 /uL 0.02-0 .53 Not Available [facility] (Lab) [address] [place], [address], 01/04/2024 13:43:42 01/04/20 24 01/04/2024 CBC/C OMPLE TE BLD COUNT W/DIF F basophils, absolute count 0.06 x10'3 /uL 0.01-0 .08 Not Available [facility] (Lab) [address] [place], [address], 01/04/2024 13:43:42 01/04/20 24 01/04/2024 CBC/C OMPLE TE BLD COUNT W/DIF F immature granulocytes ,absolute 0.01 x10'3 /uL 0.00-0 .05 Not Available [facility] (Lab) [address] [place], [address], 01/04/2024 13:43:42 01/04/20 24 01/04/2024 CBC/C OMPLE TE BLD COUNT W/DIF F nucleated red blood cells 0.0 % -0 Not Available [facility] (Lab) [address] [place], [address], 01/04/2024 13:43:42 01/04/20 24 01/04/2024 CBC/C OMPLE TE BLD COUNT W/DIF F NRBC# 0.00 x10'3 /uL Not Available [facility] (Lab) [address] [place], [address], 01/04/2024 13:43:42 01/04/20 24 01/04/2024 COMPR EHENS BETTE METAB OLIC PANEL sodium 139 mmol/ L 137-14 5 Not Available [facility] (Lab) [address] [place], [address], 01/04/2024 14:08:00 01/04/20 24 01/04/2024 COMPR EHENS BETTE METAB OLIC PANEL potassium 4.8 mmol/ L 3.5-5. 1 Not Available [facility] (Lab) [address] [place], [address], 01/04/2024 14:08:00 01/04/20 24 01/04/2024 COMPR EHENS BETTE METAB OLIC PANEL chloride 106 mmol/ L 98-107 Not Available [facility] (Lab) [address] [place], [address], 01/04/2024 14:08:00 01/04/20 24 01/04/2024 COMPR EHENS BETTE METAB OLIC PANEL carbon dioxide 28 mmol/ L 22-30 Not Available [facility] (Lab) [address] [place], [address], 01/04/2024 14:08:00 01/04/20 24 01/04/2024 COMPR EHENS BETTE METAB OLIC PANEL anion gap 9.8 mmol/ L 14-22 low Not Available [facility] (Lab) [address] [place], [address], 01/04/2024 14:08:00 01/04/20 24 01/04/2024 COMPR EHENS BETTE METAB OLIC PANEL glucose 103 mg/dL 70-99 high Not Available [facility] (Lab) [address] [place], [address], 01/04/2024 14:08:00 01/04/20 24 01/04/2024 COMPR EHENS BETTE METAB OLIC PANEL BUN 10 mg/dL 8-19 Not Available [facility] (Lab) [address] [place], [address], 01/04/2024 14:08:00 01/04/20 24 01/04/2024 COMPR EHENS BETTE METAB OLIC PANEL creatinine 0.55 mg/dL 0.66-1 .25 low Not Available [facility] (Lab) [address] [place], [address], 01/04/2024 14:08:00 01/04/20 24 01/04/2024 COMPR EHENS BETTE METAB OLIC PANEL GFR >60 Refer ence Range : [place] ge GFR Healt hy Adult : >60 mL/mi n/1.7 3 m2 Chron ic Kidne y Disea se: 15-60 mL/mi n/1.7 3 m2 Kidne y Failu re: <15/m L/min /1.73 m2 www.n iddk. nih.g ov The MDRD study equat ion has not been valid ated in child renato <18 years of age; pregn ant women ; the elder ly >85 years of age; or in some racia l or ethni c subgr oups, such as Hispa nics. Outsi de the valid ated axel eters , estim ated GFR is less accur ate, requi ring clini loc judgm ent on a case- by-ca se basis . Clini loc inter preta tion for other races and ages must be made by the clini carmela. The MDRD study equat ion has not been valid ated for the evalu ation of serum creat inine relat ed to nutri celeste l statu s or medic ation usage . For perso ns <18 years of age, a pedia tric GFR calcu lator is avail able on the [facility] websi te: https ://julita aguirre.cuate rg/pr ofess ional s/kdo qi/gf r_cal culat or Not Available [facility] (Lab) [address] [place], [address], 01/04/2024 14:08:00 01/04/20 24 01/04/2024 COMPR EHENS BETTE METAB OLIC PANEL alkaline phosphatase 88 U/L 38-126 Not Available [facility] (Lab) [address] [place], [address], 01/04/2024 14:08:00 01/04/20 24 01/04/2024 COMPR EHENS BETTE METAB OLIC PANEL alanine aminotransfe rase 40 U/L 0-35 high Not Available [facility] (Lab) [address] [place], [address], 01/04/2024 14:08:00 01/04/20 24 01/04/2024 COMPR EHENS BETTE METAB OLIC PANEL aspartate aminotransfe rase 50 U/L 15-37 high Not Available [facility] (Lab) [address] [place], [address], 01/04/2024 14:08:00 01/04/20 24 01/04/2024 COMPR EHENS BETTE METAB OLIC PANEL bilirubin, total 0.70 mg/dL 0.20-1 .30 Not Available [facility] (Lab) [address] [place], [address], 01/04/2024 14:08:00 01/04/20 24 01/04/2024 COMPR EHENS BETTE METAB OLIC PANEL calcium 9.2 mg/dL 8.4-10 .2 Not Available [facility] (Lab) [address] [place], [address], 01/04/2024 14:08:00 01/04/20 24 01/04/2024 COMPR EHENS BETTE METAB OLIC PANEL total protein 6.9 g/dL 6.3-8. 2 Not Available [facility] (Lab) [address] [place], [address], 01/04/2024 14:08:00 01/04/20 24 01/04/2024 COMPR EHENS BETTE METAB OLIC PANEL albumin 4.3 g/dL 3.4-5. 0 Not Available [facility] (Lab) [address] [place], [address], 01/04/2024 14:08:00 01/04/20 24 01/04/2024 COMPR EHENS BETTE METAB OLIC PANEL globulin 2.6 g/dL 2.6-4. 2 Not Available [facility] (Lab) [address] [place], [address], 01/04/2024 14:08:00 01/04/20 24 01/04/2024 COMPR EHENS BETTE METAB OLIC PANEL A/G ratio 1.7 ratio 1.0-2. 0 Not Available [facility] (Lab) [address] [place], [address], 01/04/2024 14:08:00 01/04/20 24 01/04/2024 LIPID PANEL cholesterol 175 mg/dL 140-19 9 NIH KASHMIR NSUS RECOM MENDA TION FOR ESTHER STERO L: ADULT CHILD LOW RISK: <200 <170 BORDE RLINE : <200- 239 ----- HIGH RISK: >240 >200 Not Available [facility] (Lab) [address] [place], [address], 01/04/2024 14:08:09 01/04/20 24 01/04/2024 LIPID PANEL triglyceride s 81 mg/dL 0-150 NIH KASHMIR NSUS REPOR T RECOM MENDA TION FOR TRIGL YCERI EDGAR: ADULT CHILD LOW RISK: <150 ----- BODER LINE: 150-1 99 ----- HIGH RISK: >200 ----- Not Available [facility] (Lab) [address] [place], [address], 01/04/2024 14:08:09 01/04/20 24 01/04/2024 LIPID PANEL HDL cholesterol 79 mg/dL 40- Not Available [facility] (Lab) [address] [place], [address], 01/04/2024 14:08:09 01/04/20 24 01/04/2024 LIPID PANEL LDL cholesterol, calculated 80 mg/dL 0-130 NIH KASHMIR NSUS REPOR T RECOM MENDA TIONS FOR LDL: ADULT CHILD LOW RISK <130 <110 (OPTI MAL LDL) <100 ----- BORDE RLINE : 130-1 59 ----- HIGH RISK: >160 >130 A TRIGL YCERI DE RESUL T >400 INVAL IDATE S THE CALCU LATIO N FOR LDL FRACT IONAT ION - THE LDL RESUL T WILL NOT BE REPOR KENIA. Not Available [facility] (Lab) [address] [place], [address], 01/04/2024 14:08:09 01/04/20 24 01/04/2024 T4 FREE free T4 1.03 NG/dL 0.78-2 .19 Not Available [facility] (Lab) [address] [place], [address], 01/04/2024 14:46:35 01/04/20 24 01/04/2024 T3 FREE free T3 4.6 pg/mL 2.77-5 .27 Not Available [facility] (Lab) [address] [place], [address], 01/04/2024 14:46:39 01/04/20 24 01/04/2024 TSH thyroid-stim ulating hormone 0.418 uIU/m L 0.465- 4.680 low Not Available [facility] (Lab) [address] [place], [address], 01/04/2024 14:50:31 Result Notes None recorded. 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 Not Available [facility] 3 04:55:02 Low back pain 628154881 Completed Not Available [facility] 3 04:55:02 Adnexal tenderness 130329594 Completed Not Available [facility] 3 04:55:02 Vitamin D deficiency 03500989 Active 2021 Not Available [facility] 3 04:55:02 Migraine 29250115 Active 2021 Not Available [facility] 3 04:55:03 Anxiety 08473665 Active Not Available [facility] 3 04:55:03 Upper respirator y infection 93582586 Active 2021 Not Available [facility] 3 04:55:03 History of bariatric surgical procedure 979898173 Active 2021 Not Available [facility] 3 04:55:03 Sinusitis 27894857 Active 2022 MAYITO Graham null, [place] - [facility] [employer] [facility] 3 18:25:46 Problem Notes None recorded. Procedures Surgical History Date Name Laterality Status Provider Name and Address Organization Details Recorded Time 08/18/20 21 LAPARASCOPIC EFRAIN-EN-Y GASTRIC BYPASS (SURG) completed Not Available [facility] 12/22/2022 05:08:10 03/18/20 11 SCALE ATTENDANT Surgery completed Not Available [facility] 12/23/19 04:44:13 SCALE ATTENDANT Surgery completed Not Available [facility] 12/22/2022 04:44:13 completed Not Available [place] [id number] 12/22/2022 04:44:13 Colonoscopy completed Not Available [facility] 12/22/2022 04:44:13 other completed Not Available [facility] 10/2022 04:44:13 other completed Not Available [facility] 10/2022 04:44:13 completed Not Available [place] [id number] 12/22/2022 04:44:13 other completed Not Available [facility] 10/2022 04:44:13 SCALE ATTENDANT Procedure completed Not Available Replaced by [facility] 12/22/2022 04:44:13 SCALE ATTENDANT Surgery completed Not Available [facility] 12/22/2022 04:44:13 SCALE ATTENDANT Surgery completed Not Available [facility] 12/22/2022 04:44:13 Imaging Results None recorded. Procedure Notes None recorded. Medical Equipment None Reported. Allergies No known drug allergies Medications Name Sig Start Date Stop Date Status Note LastModified by Organization Details LastModified Time cyclobenzap rine 10 mg tablet TK 1 T PO BID FOR 14 DAYS PRN active Not Available Not Available No t Available bupropion HCl SR 150 mg tablet,12 hr sustained-r elease Take 2 tablets q am and 1 tablet q m 12/27 completed Not Available Not Available Not Available prednisone 10 mg tablet 4 x 3 days, 3 x 3 days; 2 x 3 days, 1 x 3 days active Not Available Not Available No t Available rabeprazole 20 mg tablet,oscar yed release TAKE ONE TABLET BY MOUTH DAILY active Not Available Not Available No t Available doxycycline hyclate 100 mg capsule TAKE 1 CAPSULE BY MOUTH TWICE DAILY FOR 10 DAYS 05/31 completed Not Available Not Available Not Available atorvastati n 10 mg tablet Take 1 tablet every day by oral route. 10/19 completed Not Available Not Available Not Available azithromyci n 250 mg tablet TAKE 2 TABLETS (500 MG) BY ORAL ROUTE ONCE DAILY FOR 1 DAY THEN 1 TABLET (250 MG) BY ORAL ROUTE ONCE DAILY FOR 4 DAYS 03/27 completed Not Available Not Available Not Available ibuprofen 800 mg tablet 12/27 completed Not Available Not Available Not Available fluconazole 150 mg tablet 09/17 completed Not Available Not Available Not Available hydrocodone 5 mg-acetamin ophen 325 mg tablet TAKE 1 TABLET BY MOUTH THREE TIMES DAILY NEEDED FOR 30 DAYS 05/31 completed Not Available Not Available Not Available meloxicam 15 mg tablet TK 1 T PO D 09/15 completed Not Available Not Available Not Available ondansetron HCl 4 mg tablet 09/17 completed Not Available Not Available Not Available prednisone 20 mg tablet Take 2 tablets every day by oral route for 5 days. active Not Available Not Available No t Available Tubersol 5 tub. unit/0.1 mL intradermal injection solution Inject 0.1 mL by intraderm al route. 2022 active [facility]: [id number] Not Available Not Available Not Available sertraline 1
--- OUTSIDE RECORDS SUMMARY | 2025-03-05 07:32 | XMS_ITS | Data Portability ---
Author Organization [facility] EDDIBeth Address [address] [place] [address] Care Team Providers Care Certified Hyperbaric Technologist Name Role Phone TONY ROACH Primary Care Provider Assessment Encounter Date Assessment Date Assessment LastModified by Organization Details LastModified Time 01/30/2024 01/30/2024 Hypertension blo od pressure 124/74 continue with losartan anxiety sertraline migraines triptan therapy chronic pain pain management obtain old records continue to follow-up with her [employer]TER for regular screenings see me in 4 months. Not available 02/05/2024 19:31:25 05/07/2024 05/07/2024 hypoglycemia endocrinology multiple joint pain generic Celebre obesity handout given GERD has been stable anxiety has been doing fine needs a TB test for her school and they want intradermal test not a QuantiFERON follow up with me in 4 months. she will need frequent small meals and carry glucose tablets with her [email or web address] Not available 05/07/2024 23:20:19 09/27/2024 09/27/2024 blood pressure controlled. Anxiety increase the Zoloft to 100 mg. X-ray of the right elbow try some meloxicam and get her to see Orthopedics. She gets her Pap smears and sales representative electric service by Dr. 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 Well-versed on dietary strategies and nonpharmacological strategies for reducing blood pressure [email or web address] Not available 02/10/2025 11:23:20 Plan of Treatment Reminders Order Date Submit Date Provider Last Modified By Organization Details Last Modified Time Details Appointments ANY 15 2024 09:00A Blane Roach MD Not available Not available Not available Lab TSH, ultra-sen sitive, serum 2024 025 [email or web address] [facility], [address], [address], [place], [address], 02/28/2025 10:17:30 T3, free, serum or plasma 2024 025 [email or web address] [facility], [address], [address], [place], [address], 02/07/2025 14:16:27 lipid panel, serum 2024 025 [facility], [address], [address], [place], [address], 02/07/2025 14:16:27 CBC w/ auto diff 2024 025 [email or web address] [facility], [address], [address], [place], [address], 02/07/2025 14:16:27 CMP, serum or plasma 2024 025 [facility], [address], [address], [place], [address], 02/07/2025 14:16:27 unlisted lab - T4, free 2024 025 [email or web address] [facility], [address], [address], [place], [address], 02/28/2025 10:17:30 PPD (purified protein derivativ e), skin test 2023 024 ROBY In-Office Order, Internal Use Only DO Not Attach Compendium DO Not Attach Compendium, Do Not Delete/merge, [id number] 05/16/2024 10:57:21 Referral psychiatr ist referral 2024 025 lencho White MD, [address], [address], [place], [address], 03/04/2025 15:50:27 orthopedi c surgeon referral 2023 024 andre Carlos MD, [address], [place], [address], 10/04/2024 11:00:17 gynecolog ist referral 2023 024 Nanda Servin MD, [address], [address], [place], [address], 09/27/2024 13:11:37 endocrino logy referral 2023 024 [place], [address] [facility], [place], [address], 08/03/2024 17:13:54 Procedures None recorded. Surgeries None recorded. Imaging MAMMO, screening , bilateral 2023 024 [facility], [address], [address], [place], [address], 02/07/2025 14:15:27 XR, elbow, 2 view 2023 024 ROBY [facility], [address], [address], [place], [address], 09/27/2024 17:26:49 Medication Orders Gvoke HypoPen 2-Pack 1 mg/0.2 mL subcutane ous auto-inje ctor 2024 025 [email or web address] [id number], [address], [place], [place], [id number], 02/07/2025 14:16:27 meloxicam 15 mg tablet 2023 024 [email or web address] [facility], [address], [address], [place], [place], [id number], 09/27/2024 13:11:37 Zoloft 100 mg tablet 2023 024 [email or web address] [facility], [address], [address], [place], [place], [id number], 09/27/2024 13:11:37 celecoxib 200 mg capsule 2023 024 [email or web address] [facility], [address], [address], [place], [place], [id number], 09/27/2024 10:45:13 Tubersol 5 tub. unit/0.1 mL intraderm al injection solution 2023 024 [email or web address] Not available 05/07/2024 11:32:19 Patient TargetsNo targets recorded. Patient Instructions Encounter Date Encounter Id Patient Instructions Last Modified By Organization Details Last Modified Time 05/07/2024 [id number] A healthy lifestyle: care instructions [email or web address] Not available 05/07/2024 13:19:24 02/07/2025 [id number] A healthy lifestyle: care instructions [email or web address] Not available 02/07/2025 14:16:27 Reason for Referral Endocrinology Referral for H ypoglycemia Referring Physician: Tony Roach, Internal Medicine, Encounter Date: 05/07/2024 Orthopedic Surgeon Referral for Pain of right elbow joint Referring Physician: Tony Roach, Internal Medicine, Encounter Date: 09/27/2024 Track Inspecting Supervisor Referral for Gy necologic examination Referring Physician: Tony Roach, Internal Medicine, Encounter Date: 09/27/2024 Psychiatrist Referral for An xiety Referring Physician: Tony Roach, Internal Medicine, Encounter Date: 02/07/2025 Results Created Date Observation Date Name Description Value Unit Range Abnormal Flag Note LastModifiedBy Organization Detail LastModifiedTime 01/04/20 24 01/04/2024 Thyro tropi n [Unit s/vol ume] in Serum or Plasm a thyroid-stim ulating hormone low thyro id-st imula ting hormo ne Not Available Not Available 02/07/2025 10:03:48 01/04/20 24 01/04/2024 Triio dothy mary e (T3) Free [Mass /volu me] in Serum or Plasm a free T3 free T3 Not Available Not Available 02/07/2025 10:03:48 01/04/20 24 01/04/2024 Thyro xine (T4) free [Mass /volu me] in Serum or Plasm a free T4 free T4 Not Available Not Available 02/07/2025 10:03:47 01/04/20 24 01/04/2024 Lipid 1996 panel - Serum or Plasm a cholesterol nicolasa stero l Not Available Not Available 02/07/2025 10:03:47 01/04/20 24 01/04/2024 Lipid 1996 panel - Serum or Plasm a triglyceride s trigl yceri ijeoma Not Available Not Available 02/07/2025 10:03:47 01/04/20 24 01/04/2024 Lipid 1996 panel - Serum or Plasm a HDL cholesterol HDL nicolasa stero l Not Available Not Available 02/07/2025 10:03:47 01/04/20 24 01/04/2024 Lipid 1996 panel - Serum or Plasm a cholesterol in LDL [mass/volume ] in serum or plasma LDL nicolasa stero l, calcu lated Not Available Not Available 02/07/2025 10:03:47 01/04/20 24 01/04/2024 Compr ehens alfonso metab olic 1999 panel - Serum or Plasm a sodium sodiu m Not Available Not Available 02/07/2025 10:03:47 01/04/20 24 01/04/2024 Compr ehens alfonso metab olic 1999 panel - Serum or Plasm a potassium potas sium Not Available Not Available 02/07/2025 10:03:47 01/04/20 24 01/04/2024 Compr ehens alfonso metab olic 1999 panel - Serum or Plasm a chloride chlor hafsa Not Available Not Available 02/07/2025 10:03:47 01/04/20 24 01/04/2024 Compr ehens alfonso metab olic 2000 panel - Serum or Plasm a carbon dioxide carbo n dioxi de Not Available Not Available 02/07/2025 10:03:47 01/04/20 24 01/04/2024 Compr ehens alfonso metab olic 1999 panel - Serum or Plasm a anion gap low anion gap Not Available Not Available 02/07/2025 10:03:47 01/04/20 24 01/04/2024 Compr ehens alfonso metab olic 2000 panel - Serum or Plasm a glucose high gluco se Not Available Not Available 02/07/2025 10:03:47 01/04/20 24 01/04/2024 Compr ehens alfonso metab olic 2000 panel - Serum or Plasm a BUN BUN Not Available Not Availa ble 02/07/2025 10:03:47 01/04/20 24 01/04/2024 Compr ehens alfonso metab olic 2000 panel - Serum or Plasm a creatinine low creat inine Not Available Not Available 02/07/2025 10:03:47 01/04/20 24 01/04/2024 Compr ehens alfonso metab olic 2000 panel - Serum or Plasm a GFR >60 GFR Not Available Not Availa ble 02/07/2025 10:03:47 01/04/20 24 01/04/2024 Compr ehens alfonso metab olic 1999 panel - Serum or Plasm a alkaline phosphatase alkal ine phosp hatas e Not Available Not Available 02/07/2025 10:03:47 01/04/20 24 01/04/2024 Compr ehens alfonso metab olic 2000 panel - Serum or Plasm a alanine aminotransfe rase high jasmeet ne amino trans feras e Not Available Not Available 02/07/2025 10:03:47 01/04/20 24 01/04/2024 Compr ehens alfonso metab olic 2000 panel - Serum or Plasm a aspartate aminotransfe rase high aspar sterling amino trans feras e Not Available Not Available 02/07/2025 10:03:47 01/04/20 24 01/04/2024 Compr ehens alfonso metab olic 2000 panel - Serum or Plasm a bilirubin, total bilir ubin, total Not Available Not Available 02/07/2025 10:03:47 01/04/20 24 01/04/2024 Compr ehens alfonso metab olic 2000 panel - Serum or Plasm a calcium calci um Not Available Not Available 02/07/2025 10:03:47 01/04/20 24 01/04/2024 Compr ehens alfonso metab olic 2000 panel - Serum or Plasm a total protein total prote in Not Available Not Available 02/07/2025 10:03:47 01/04/20 24 01/04/2024 Compr ehens alfonso metab olic 2000 panel - Serum or Plasm a albumin album in Not Available Not Available 02/07/2025 10:03:47 01/04/20 24 01/04/2024 Compr ehens alfonso metab olic 2000 panel - Serum or Plasm a globulin globu ronald Not Available Not Available 02/07/2025 10:03:47 01/04/20 24 01/04/2024 Compr ehens alfonso metab olic 2000 panel - Serum or Plasm a A/G ratio A/G ratio Not Available Not Available 02/07/2025 10:03:47 01/04/20 24 01/04/2024 CBC W Auto Diffe renti al panel - Blood white blood cells white blood cells Not Available Not Available 02/07/2025 10:03:47 01/04/20 24 01/04/2024 CBC W Auto Diffe renti al panel - Blood red blood cells red blood cells Not Available Not Available 02/07/2025 10:03:47 01/04/20 24 01/04/2024 CBC W Auto Diffe renti al panel - Blood hemoglobin hemog lobin Not Available Not Available 02/07/2025 10:03:47 01/04/20 24 01/04/2024 CBC W Auto Diffe renti al panel - Blood hematocrit hemat ocrit Not Available Not Available 02/07/2025 10:03:47 01/04/20 24 01/04/2024 CBC W Auto Diffe renti al panel - Blood mean red cell volume mean red cell volum e Not Available Not Available 02/07/2025 10:03:47 01/04/20 24 01/04/2024 CBC W Auto Diffe renti al panel - Blood mean red cell hemoglobin mean red cell hemog lobin Not Available Not Available 02/07/2025 10:03:47 01/04/20 24 01/04/2024 CBC W Auto Diffe renti al panel - Blood mean RBC HGB concentratio n mean RBC HGB haydee ntrat ion Not Available Not Available 02/07/2025 10:03:47 01/04/20 24 01/04/2024 CBC W Auto Diffe renti al panel - Blood red cell distribution width red cell distr ibuti on width Not Available Not Available 02/07/2025 10:03:47 01/04/20 24 01/04/2024 CBC W Auto Diffe renti al panel - Blood platelets plate lets Not Available Not Available 02/07/2025 10:03:47 01/04/20 24 01/04/2024 CBC W Auto Diffe renti al panel - Blood mean platelet volume mean plate let volum e Not Available Not Available 02/07/2025 10:03:47 01/04/20 24 01/04/2024 CBC W Auto Diffe renti al panel - Blood neutrophils neutr ophil s Not Available Not Available 02/07/2025 10:03:47 01/04/20 24 01/04/2024 CBC W Auto Diffe renti al panel - Blood lymphocytes lymph ocyte s Not Available Not Available 02/07/2025 10:03:47 01/04/20 24 01/04/2024 CBC W Auto Diffe renti al panel - Blood monocytes monoc ytes Not Available Not Available 02/07/2025 10:03:47 01/04/20 24 01/04/2024 CBC W Auto Diffe renti al panel - Blood eosinophils eosin ophil s Not Available Not Available 02/07/2025 10:03:47 01/04/20 24 01/04/2024 CBC W Auto Diffe renti al panel - Blood basophils basop hils Not Available Not Available 02/07/2025 10:03:47 01/04/20 24 01/04/2024 CBC W Auto Diffe renti al panel - Blood immature granulocytes immat ure granu locyt es Not Available Not Available 02/07/2025 10:03:47 01/04/20 24 01/04/2024 CBC W Auto Diffe renti al panel - Blood neutrophils, absolute count neutr ophil s, absol igiugig count Not Available Not Available 02/07/2025 10:03:47 01/04/20 24 01/04/2024 CBC W Auto Diffe renti al panel - Blood lymphocytes, absolute count lymph ocyte s, absol igiugig count Not Available Not Available 02/07/2025 10:03:47 01/04/20 24 01/04/2024 CBC W Auto Diffe renti al panel - Blood monocytes, absolute count monoc ytes, absol igiugig count Not Available Not Available 02/07/2025 10:03:47 01/04/20 24 01/04/2024 CBC W Auto Diffe renti al panel - Blood eosinophils, absolute count eosin ophil s, absol igiugig count Not Available Not Available 02/07/2025 10:03:47 01/04/20 24 01/04/2024 CBC W Auto Diffe renti al panel - Blood basophils, absolute count basop hils, absol igiugig count Not Available Not Available 02/07/2025 10:03:47 01/04/20 24 01/04/2024 CBC W Auto Diffe renti al panel - Blood immature granulocytes ,absolute immat ure granu locyt es,ab solut e Not Available Not Available 02/07/2025 10:03:47 01/04/20 24 01/04/2024 CBC W Auto Diffe renti al panel - Blood nucleated red blood cells nucle ated red blood cells Not Available Not Available 02/07/2025 10:03:47 01/04/20 24 01/04/2024 CBC W Auto Diffe renti al panel - Blood NRBC# NRBC# Not Available Not Availa ble 02/07/2025 10:03:47 05/16/20 24 05/16/2024 PPD (trina fied prote in deriv ative ), skin test Result Negati ve Not Available In-Office Order Internal Use Only DO Not Attach Compendium DO Not Attach Compendium, Do Not Delete/merge, [id number] 05/07/2024 11:07:34 11/13/19 25 11/13/2024 pap, IG + HR HPV HPV negati ve Not Available Not Available 12:36:26 09/27/20 24 09/27/2024 XR, elbow , 2 view No observ ation record ed. [facility] [address], [place], [address], 10/04/2024 10:57:50 09/28/20 24 09/27/2024 XR, elbow , 2 view No observ ation record ed. [facility] [address], [place], [address], 10/04/2024 10:57:51 Result Notes None recorded. Problems Name Problem SNOMED Code Status Onset Date Resolution Date Notes Provider Name and Address Organization Details Recorded Time Gastroesoph ageal reflux disease without esophagitis 774277180 Active 2023 JAGUAR Graham, [place] - [facility] 4 10:42:51 Anxiety 84861943 Active 2023 JAGUAR Graham, [place] - [facility] 4 10:42:52 Screening mammography Active 2023 Ritesh Amin MA null, [place] - [facility] 4 10:42:53 Pain of right elbow joint 8938376441760 9109 Active 2023 JAGUAR Graham, [place] - [facility] 4 12:13:05 Essential hypertensio n 97516279 Active 2024 Tony Roach MD Attn: [facility] michelle,[address] [place], [address] [place] [address] - [facility] 5 11:19:39 Problem Notes None recorded. Procedures Surgical History Date Name Laterality Status Provider Name and Address Organization Details Recorded Time Gastric Bypass completed JAGUAR Ha - [facility] 01/03/2024 17:30:42 Hernia Repair completed JAGUAR Ha - [facility] 01/03/2024 17:30:49 ligation of bilateral fallopian tubes completed JAGUAR Ha [facility] 01/03/2024 17:31:13 Dilation and Curettage completed JAGUAR Ha - [facility] 01/03/2024 17:31:22 delivery completed JAGUAR Ha - [facility] 01/03/2024 17:31:32 Imaging Results Imaging Date Name Status LastModified by Organiz ation Details LastModified Time 09/27/2024 XR, elbow, 2 view completed [facility] [address], [place], [address], 10/04/2024 10:57:50 09/27/2024 XR, elbow, 2 view completed [facility] [address], [place], [address], 10/04/2024 10:57:51 Procedure Notes None recorded. Medical Equipment None Reported. Allergies No known drug allergies Medications Name Sig Start Date Stop Date Status Note LastModified by Organization Details LastModified Time Prescript ion - Prior Authoriza tion Request active Not Available Not Available Not Available celecoxib 200 mg capsule TAKE 1 CAPSULE BY MOUTH DAILY 09/[address] Roach at visit 09/27/24. Not Available Not Available Not Available cyclobenz aprine 10 mg tablet active Not Available Not Available No t Available prednison e 10 mg tablet TAKE 1 TABLET BY MOUTH TWICE DAILY FOR 10 DAYS active Not Available Not Available No t Available rabeprazo le 20 mg tablet,de layed release TAKE 1 TABLET BY MOUTH DAILY 2024 active Not Available Not Available Not Avai lable doxycycli ne hyclate 100 mg capsule TAKE 1 CAPSULE BY MOUTH TWICE DAILY FOR 10 DAYS 01/02 completed Not Available Not Available Not Available Glucagon Emergency Kit 1 mg solution for injection INJECT 1 MG UNDER THE SKIN EVERY DAY NEEDED active Not Available Not Available No t Available hydrocodo ne 5 mg-acetam inophen 325 mg tablet TAKE 1 TABLET BY MOUTH THREE TIMES DAILY NEEDED FOR 30 DAYS 01/02 completed Not Available Not Available Not Available meloxicam 15 mg tablet Take 1 tablet every day by oral route. active Not Available Not Available No t Available Tubersol 5 tub. unit/0.1 mL intraderm al injection solution Inject 0.1 mL by intrader mal route. 2023 active Not Available Not Available Not Avai lable sertralin e 100 mg tablet TAKE 2 TABLETS BY MOUTH DAILY 2024 active Not Available Not Available Not Avai lable hydrocodo ne 7.5 mg-acetam inophen 325 mg tablet TAKE 1 TABLET BY MOUTH THREE TIMES DAILY NEEDED active Not Available Not Available No t Available losartan 25 mg tablet TAKE 1 TABLET BY MOUTH DAILY 2024 active Not Available Not Available Not Avai lable celecoxib 100 mg capsule TAKE 1 CAPSULE BY MOUTH TWICE DAILY 06/26 completed increase d dose Not Available Not Available Not Available sertralin e 50 mg tablet TAKE 1 TABLET BY MOUTH DAILY WITH 100 MG TABLET TO EQUAL 150 MG DAILY active Not Available Not Available No t Available Mimvey 1 mg-0.5 mg tablet TAKE 1 TABLET BY MOUTH DAILY active Not Available Not Available No t Available Gvoke HypoPen 2-Pack 1 mg/0.2 mL subcutane ous auto-inje ctor INJECT 1 MG UNDER THE SKIN NEEDED active Not Available Not Available No t Available Vitals Date Recorded Body height Body mass index (BMI) Body weight Heart rate Body temperature Oxygen saturation Oxygen saturation in Arterial blood by Pulse oximetry Systolic blood pressure Diastolic blood pressure Provider Name and Address Organization Details Last Updated DateTime 4 162.56 cm 30.3 kg/m2 06308.6 9 g 81 /min 99.1 [degF] 99 % 99 % 124 mm[Hg] 74 mm[Hg] Enid Houser [place] - [facility] 4 09:50:58 Date Recorded Body height Body mass index (BMI) Body weight Heart rate Oxygen saturation Oxygen saturation in Arterial blood by Pulse oximetry Systolic blood pressure Diastolic blood pressure Provider Name and Address Organization Details Last Updated DateTime 4 162.56 cm 31.7 kg/m2 77374.1 5 g 97 /min 97 % 97 % 126 mm[Hg] 80 mm[Hg] Jillian Tierney [place] - [facility] 4 10:16:20 Date Recorded Body height Body mass index (BMI) Body weight Heart rate Oxygen saturation Oxygen saturation in Arterial blood by Pulse oximetry Systolic blood pressure Diastolic blood pressure Provider Name and Address Organization Details Last Updated DateTime 4 162.56 cm 30.5 kg/m2 99078.7 2 g 73 /min 98 % 98 % 114 mm[Hg] 64 mm[Hg] Abigail Singer MA [facility] 4 09:59:16 Date Recorded Body height Body mass index (BMI) Body weight Heart rate Oxygen saturation Oxygen saturation in Arterial blood by Pulse oximetry Systolic blood pressure Diastolic blood pressure Provider Name and Address Organization Details Last Updated DateTime 5 162.56 cm 29.3 kg/m2 95209.5 8 g 105 /min 97 % 97 % 142 mm[Hg] 70 mm[Hg] Abigail Singer MA [facility] SI 5 10:22:17 Social History Question Answer Notes LastModified by Organizat ion Details LastModified Time Tobacco Smoking Status Former Smoker Mustapha Carlos MA [facility], [facility] 01/03/2024 17:29:48 Do You Have An Advance Directive? No Information n ot available 01/03/2024 Are You Blind Or Do You Have Difficulty Seeing? No Information n ot available 01/03/2024 What Is Your Level Of Caffeine Consumption? None Information not available 05/07/2024 In The 14 Days Before Symptom Onset, Have You Had Close Contact With A Laboratory-confirm ed COVID-19 While That Case Was Ill? No Information n ot available 09/27/2024 In The 14 Days Before Symptom Onset, Have You Had Close Contact With A Person Who Is Under Investigation For COVID-19 While That Person Was Ill? No Information not available 09/27/2024 Have You Been To An Area Known To Be High Risk For COVID-19? No Information not available 09/27/2024 Are You Deaf Or Do You Have Serious Difficulty Hearing? No Information not available 01/03/2024 What Type Of Diet Are You Following? REGULAR Information n ot available 01/03/2024 Are There Any Guns Present In Your Home? No Information not available 01/03/2024 What Was The Date Of Your Most Recent Tobacco Screening? 02/07/2025 Information not available 02/07/2025 What Is Your Relationship Status? Information not available 01/03/2024 Do You Use Your Seat Belt Or Car Seat Routinely? Yes Information not available 01/03/2024 Do You Have Smoke And Carbon Monoxide Detectors In Your Home? Yes Information not available 01/03/2024 At What Age Did You Start Smoking Tobacco? 9 Information not available 05/07/2024 Do You Use Sunscreen Routinely? No Information not available 01/03/2024 Has Tobacco Cessation Counseling Been Provided? No Information not available 01/03/2024 How Many Years Have You Smoked Tobacco? 6 Information not available 05/07/2024 Sex: Female Functional Status Question Answer Note LastModified by Organizat ion Details LastModified Time Do you use any illicit or recreational drugs? No Information not available 01/03/2024 Do you or have you ever used any other forms of tobacco or nicotine? No Information not available 01/03/2024 What is your level of alcohol consumption? None Information not available 01/03/2024 Are you currently employed? Yes Information not available 09/27/2024 Are you able to care for yourself? Yes Information n ot available 01/03/2024 What is your exercise level? Occasional Information not available 01/03/2024 Mental Status Question Answer Note LastModified by Organization D etails LastModified Time Do you feel stressed (tense, restless, nervous, or anxious, or unable to sleep at night)? [id number] Information not available 01/03/2024 Family History Relationship Description Onset Age of this Age Resolved Age Notes LastModified by Organization Details LastModified Time Father Harmful pattern of use of alcohol [email or web address] Not available 12/22 17:27:56 Father Cerebrovascu lar accident [email or web address] Not available 0 01/03/2024 17:28:10 Father Depressive disorder [email or web address] Not available 12/22 17:28:21 Father Diabetes mellitus [email or web address] Not available 12/22 17:28:33 Father Disorder of thyroid gland [email or web address] Not available 12/22 17:28:43 Father Heart disease [email or web address] Not available 12/22 17:28:53 Father Hypertensive disorder [email or web address] Not available 12/22 17:28:59 Father Hypercholest erolemia [email or web address] Not available 12/22 17:29:08 Mother Harmful pattern of use of alcohol [email or web address] Not available 12/22 17:27:57 Mother Depressive disorder [email or web address] Not available 12/22 17:28:21 Mother Disorder of thyroid gland [email or web address] Not available 12/22 17:28:43 Mother Migraine [email or web address] Not availa ble 01/03/2024 17:29:18 Brother Attention deficit hyperactivit y disorder [email or web address] Not available 09/2024 17:28:03 Medical History Condition Response Coronary Artery Disease N Other N High Blood Pressure Y Atrial Fibrillation N Thyroid Problems N Kidney or Bladder Problems N Blood Clots N COPD N Depression Y GI Problems Y Skin Problems N Anemia N Heart Attack ([place]) N Anxiety Disorder Y Diabetes N Muscle, Joint, or Bone Problems N Seizures/Epilepsy N Acid Reflux (GERD) N Cancer N Stroke N Asthma N Allergies N High Cholesterol N Hepatitis N Liver Disease N Headaches Y Heart Failure N Osteoporosis N Gynecological History Statement/Question Response Menses Monthly Y Duration of Flow (days) 3 Current Control Method Tubal Ligat ion Flow Light Date of LMP 04/07/2024 Obstetrics History GPAL:G 2 P 2 0 0 2 Type Value Full Term 2 Living 2 Total 2 Immunizations Vaccine Type Date Status Note Provider Nam e and Address Organization Details Recorded Time Influenza, split virus, quadrivalent, preservative 0 completed Ritesh Amin MA null, [place] - [facility] 01/03/2024 17:05:01 Influenza, MDCK, quadrivalent, PF 3 completed [id number]||2025-03-05 08:36:00|MM_ITS|[id number]|Imaging|[id number]|"EXAMINATION: MM screening lazaro BI w cyrus HISTORY: Screening mammogram TECHNIQUE: Craniocaudal and mediolateral oblique 3-D tomosynthesis images were obtained and synthetic 2-D images were generated. CAD analysis was submitted and interpreted. COMPARISON: No prior mammogram is available for comparison at this institution. BREAST PARENCHYMAL COMPOSITION:Dense: The breasts are extremely dense, which lowers the sensitivity o f mammography. FINDINGS: No suspicious mass, calcification, or architectural distortion are identified in either mirela ast to suggest malignancy. There has been no suspicious interval change. IMPRESSION: No mammographic evidence of malignancy. Recommend routine screening mammography in one year. BI-RADS Category 1: Negative Reviewed, dictated and finalized at location . IMPRESSION: No mammographic evidence of malignancy. Recommend routine screening mammography in one year. BI-RADS Category 1: Negative "
== END 2025-03-05 07:28 | disposition home or self-care (01) ==
LOC: CHSIMG 07:29
PROVIDERS: PCP Internal Medicine; Visit Provider Obstetrics & Gynecology
DX: Z12.31 Encounter for screening mammogram for malignant neoplasm of breast (principal)
CPT/HCPCS: 77063; 77067